=== PATIENT | male | born 1980 | race Hispanic/Latino ===

== ENCOUNTER 2018-11-18 02:40 | Emergency (ER) | payer OTHER, MEDICARE ==
[2018-11-18] MEDS ORDERED: LEVETIRACETAM 500 MG/5 ML SD VIAL IV ONE (04:16)
[2018-11-18] MEDS ORDERED: SODIUM CHLORIDE 0.9% 500ML 500 ML IV ONE (04:17)
== END 2018-11-18 05:27 | disposition home or self-care (01) ==
LOC: EDH 02:40
DX: R56.9 Unspecified convulsions (principal)
CPT/HCPCS: 96374; 99284; J1953; J7040